=== PATIENT | female | born 1980 | race Caucasian/White ===

== ENCOUNTER → 2021-03-04 | Outpatient (CLI) | payer OTHER, MEDICARE ==
[~2021-03-04] MED LIST: ALLEGRA ALLERG180 MG PO; CALCIUM + VITA1 EACH PO; CELEBREX 200 M200 MG PO; FLOMAX0.4 MG PO; FUROSEMIDE 20 M20 MG PO; KLOR-CON 1010 MEQ PO; MIRALAX119 GM PO; OXYCODONE HCL10 MG PO; OXYCONTIN30 MG PO; SKELAXIN 800 M800 M1 PO; SUDAFED 12 HOU120 MG PO; TOPAMAX 25 MG T25 MG PO; TOPROL XL50 MG PO; TYLENOL PM EX-1 EACH PO; ZOFRAN ODT4 MG PO
== END ==
LOC: M.PC 12:45
PROVIDERS: ATTEND Anesthesiology Pain Medicine
DX: M54.12 Radiculopathy, cervical region (principal); G95.89 Other specified diseases of spinal cord; G95.29 Other cord compression; E78.5 Hyperlipidemia, unspecified; I10 Essential (primary) hypertension; I26.99 Other pulmonary embolism without acute cor pulmonale; J30.9 Allergic rhinitis, unspecified; G43.019 Migraine without aura, intractable, without status migrainosus; R13.19 Other dysphagia; M96.0 Pseudarthrosis after fusion or arthrodesis; N63.10 Unspecified lump in the right breast, unspecified quadrant; M79.89 Other specified soft tissue disorders

== ENCOUNTER → 2021-04-01 | Outpatient (CLI) | payer OTHER, MEDICARE ==
[~2021-04-01] MED LIST changes: +ROXICODONE15 MG PO
== END ==
LOC: M.PC 08:24
PROVIDERS: ATTEND Anesthesiology Pain Medicine
DX: M54.12 Radiculopathy, cervical region (principal); E78.5 Hyperlipidemia, unspecified; I10 Essential (primary) hypertension; I26.99 Other pulmonary embolism without acute cor pulmonale; J30.9 Allergic rhinitis, unspecified; G43.019 Migraine without aura, intractable, without status migrainosus; R13.10 Dysphagia, unspecified; Z79.891 Long term (current) use of opiate analgesic; Z79.899 Other long term (current) drug therapy

== ENCOUNTER → 2021-04-29 | Outpatient (CLI) | payer OTHER, MEDICARE | LOC: M.PC 08:06 | PROVIDERS: ATTEND Anesthesiology Pain Medicine | DX: M54.12 Radiculopathy, cervical region (principal); M47.12 Other spondylosis with myelopathy, cervical region; E78.5 Hyperlipidemia, unspecified; I10 Essential (primary) hypertension; I26.99 Other pulmonary embolism without acute cor pulmonale; G43.019 Migraine without aura, intractable, without status migrainosus; R13.19 Other dysphagia; N63.10 Unspecified lump in the right breast, unspecified quadrant; M79.89 Other specified soft tissue disorders ==

== ENCOUNTER → 2021-05-27 | Outpatient (CLI) | payer OTHER, MEDICARE | LOC: M.PC 08:07 | PROVIDERS: ATTEND Anesthesiology Pain Medicine | DX: S12.9XXA Fracture of neck, unspecified, initial encounter (principal); G95.20 Unspecified cord compression; M54.12 Radiculopathy, cervical region; E78.5 Hyperlipidemia, unspecified; I10 Essential (primary) hypertension; N63.10 Unspecified lump in the right breast, unspecified quadrant; I26.99 Other pulmonary embolism without acute cor pulmonale; J30.9 Allergic rhinitis, unspecified; R13.19 Other dysphagia; M25.473 Effusion, unspecified ankle; X58.XXXA Exposure to other specified factors, initial encounter; Y93.89 Activity, other specified; Y92.89 Other specified places as the place of occurrence of the external cause; Y99.8 Other external cause status ==

== ENCOUNTER → 2021-06-24 | Outpatient (CLI) | payer OTHER, MEDICARE ==
[~2021-06-24] MED LIST changes: +AMITRIPTYLINE H10 M1 PO
== END ==
LOC: M.PC 08:33
PROVIDERS: ATTEND Anesthesiology Pain Medicine
DX: M54.12 Radiculopathy, cervical region (principal); G95.9 Disease of spinal cord, unspecified; E78.5 Hyperlipidemia, unspecified; I10 Essential (primary) hypertension; I26.99 Other pulmonary embolism without acute cor pulmonale; G43.819 Other migraine, intractable, without status migrainosus; R13.19 Other dysphagia; M96.0 Pseudarthrosis after fusion or arthrodesis; N63.10 Unspecified lump in the right breast, unspecified quadrant; M25.473 Effusion, unspecified ankle; Z79.899 Other long term (current) drug therapy; Z88.5 Allergy status to narcotic agent; Z88.8 Allergy status to other drugs, medicaments and biological substances

== ENCOUNTER → 2021-07-22 | Outpatient (CLI) | payer OTHER, MEDICARE | LOC: M.PC 08:28 | PROVIDERS: ATTEND Anesthesiology Pain Medicine | DX: G89.29 Other chronic pain (principal); G95.89 Other specified diseases of spinal cord; G95.29 Other cord compression; M54.12 Radiculopathy, cervical region; E78.5 Hyperlipidemia, unspecified; I10 Essential (primary) hypertension; I26.99 Other pulmonary embolism without acute cor pulmonale; J30.9 Allergic rhinitis, unspecified; G43.819 Other migraine, intractable, without status migrainosus; R13.19 Other dysphagia; N63.10 Unspecified lump in the right breast, unspecified quadrant; M79.89 Other specified soft tissue disorders; Z98.890 Other specified postprocedural states; Z88.1 Allergy status to other antibiotic agents; Z88.0 Allergy status to penicillin; Z79.899 Other long term (current) drug therapy ==

== ENCOUNTER → 2021-08-19 | Outpatient (CLI) | payer OTHER, MEDICARE | LOC: M.PC 08:59 | PROVIDERS: ATTEND Anesthesiology Pain Medicine | DX: M54.12 Radiculopathy, cervical region (principal); G95.29 Other cord compression; G95.89 Other specified diseases of spinal cord; E78.5 Hyperlipidemia, unspecified; I10 Essential (primary) hypertension; I26.99 Other pulmonary embolism without acute cor pulmonale; J30.89 Other allergic rhinitis; N63.10 Unspecified lump in the right breast, unspecified quadrant; M25.473 Effusion, unspecified ankle; R13.12 Dysphagia, oropharyngeal phase; Z88.0 Allergy status to penicillin; Z88.8 Allergy status to other drugs, medicaments and biological substances; Z79.899 Other long term (current) drug therapy ==

== ENCOUNTER → 2021-10-14 | Outpatient (CLI) | payer OTHER, MEDICARE | LOC: M.PC 08:13 | PROVIDERS: ATTEND Anesthesiology Pain Medicine | DX: G89.29 Other chronic pain (principal); M54.12 Radiculopathy, cervical region; G95.89 Other specified diseases of spinal cord; M43.22 Fusion of spine, cervical region; E78.5 Hyperlipidemia, unspecified; I10 Essential (primary) hypertension; I26.99 Other pulmonary embolism without acute cor pulmonale; J30.9 Allergic rhinitis, unspecified; G43.909 Migraine, unspecified, not intractable, without status migrainosus; R13.19 Other dysphagia; N63.10 Unspecified lump in the right breast, unspecified quadrant; M79.89 Other specified soft tissue disorders; Z88.8 Allergy status to other drugs, medicaments and biological substances; Z79.899 Other long term (current) drug therapy ==